=== PATIENT | male | born 1950 | race Asian ===

== ENCOUNTER 2022-10-07 10:26 | Emergency (ER) | payer OTHER ==
[~2022-10-07] VITALS: Ht 172.7 cm; Wt 79.4 kg
[2022-10-07 10:36] VITALS: BP 159/104
--- NOTE | 2022-10-07 11:14 | NUR ---
X-Ray at bedside.
--- NOTE | 2022-10-07 11:14 | NUR ---
C/O RIGHT SHOULDER PAINX1 DAY, DENIES ANY TRAUMA/INJURY. DENIES ANY SOB, CP, NO OBVIOUS DEFORMITIES NOTED ON AFFECTED AREA NKA PMH: HTN
[2022-10-07 11:52] LABS: BASOPHILS # (AUTO) 0.1 K/uL (0.00-0.22); BASOPHILS % (AUTO) 1.3 % (0.0-2.0); EOSINOPHILS # (AUTO) 0.2 K/uL (0-0.4); EOSINOPHILS % (AUTO) 2.3 % (0.0-4.0); HEMATOCRIT 46.7 % (36-52); HEMOGLOBIN 16.1 g/dL (12.0-18.0); LYMPHOCYTES # (AUTO) 1.8 K/uL (2.0-11.5); LYMPHOCYTES % (AUTO) 25.5 % (20.5-51.1); MEAN CORPUSCULAR HEMOGLOBIN 31 pg (27-31); MEAN CORPUSCULAR HGB CONC 35 g/dL (33-37); MEAN CORPUSCULAR VOLUME 90.9 fL (80-94); MONOCYTES # (AUTO) 0.9 K/uL (0.8-1.0); MONOCYTES % (AUTO) 12.3 % (1.7-9.3); NEUTROPHILS # (AUTO) 4.2 K/uL (1.8-7.7); NEUTROPHILS % (AUTO) 58.6 % (42.2-75.2); PLATELET COUNT (AUTO) 218 K/uL (140-450); RED BLOOD CELL COUNT(AUTO) 5.14 MIL/uL (4.20-6.10); RED CELL DISTRIBUTION WIDTH 13.7 % (11.6-13.7); WHITE BLOOD COUNT (AUTO) 7.2 K/uL (4.8-10.8)
[2022-10-07 11:55] LABS: ALBUMIN 4.4 g/dL (3.4-5.0); ANION GAP 14.9 (8-16); ASPARTATE AMINOTRANSFERASE 12 U/L (15-37); CARBON DIOXIDE 24.1 mmol/L (21-32); CHLORIDE 102 mmol/L (98-107); CREATININE 0.8 mg/dL (0.6-1.3); GLUCOSE 142 mg/dL (74-106); SODIUM SERUM 137 mmol/L (136-145); TOTAL BILIRUBIN 0.4 mg/dL (0.0-1.0); UREA NITROGEN, BLOOD 18 mg/dL (7-18)
[2022-10-07] MEDS ORDERED: METH-1681 PO (12:28)
[2022-10-07] MEDS ORDERED: IBUP-2213 PO (12:28)
[2022-10-07] MEDS ORDERED: LID5T TP (12:28)
[2022-10-07 12:43] VITALS: BP 143/87
--- NOTE | 2022-10-07 12:44 | NUR ---
Patient discharged with v/s stable. Written and verbal after care instructions ABOUT SHOULDER SPRAIN given and explained. Patient alert, oriented and verbalized understanding of instructions. Ambulatory with steady gait. All questions addressed prior to discharge. ID band removed. Patient advised to follow up with PMD. Rx of 5%LIDODERM, ROBAXIN, MOTRIN, given. Patient educated on indication of medication including possible reaction and side effects. Opportunity to ask questions provided and answered.
== END 2022-10-07 12:44 | disposition home or self-care (01) ==
LOC: MED 10:26
DX: S46.911A Strain of unspecified muscle, fascia and tendon at shoulder and upper arm level, right arm, initial encounter (principal); X58.XXXA Exposure to other specified factors, initial encounter; Y93.89 Activity, other specified; Y92.89 Other specified places as the place of occurrence of the external cause; Y99.8 Other external cause status
CPT/HCPCS: 36415; 71045; 73030; 80053; 84484; 85025; 93005; 99285